=== PATIENT | female | born 1970 | race Caucasian/White ===

== ENCOUNTER → 2020-03-06 | Outpatient (CLI) | payer SELFPAY ==
[~2020-03-06] MED LIST: DIATRIZOATE MEGLUM/SODIUM 37% 120 ML (GASTROGRAFIN) PO ONE
--- NOTE | 2020-03-06 08:58 | Diagnostic Imaging Report ---
PROCEDURE: CT chest and abdomen without contrast. TECHNIQUE: Axial images were obtained from the thoracic inlet through the iliac crest without the administration of intravenous contrast. Auto Exposure Controls were utilized during the CT exam to meet ALARA standards for radiation dose reduction. INDICATION: Elevated diaphragm. COMPARISON: None. FINDINGS: Hepatomegaly. Diffuse fatty infiltration of the liver. Cholecystectomy. The adrenals, kidneys, visualized collecting systems, pancreas and spleen are negative. There is mild elevation of the right hemidiaphragm due to the hepatomegaly. The lungs are clear. No pleural effusion or pneumothorax. No endobronchial lesions. Normal heart size. No pericardial effusion. No mediastinal, hilar or axillary lymphadenopathy. Age-appropriate changes of the visualized spine. No acute osseous findings. IMPRESSION: 1. Hepatic steatosis and hepatomegaly. 2. Lungs are clear. Dictated by: Dictated on workstation # [id number]
== END ==
LOC: RAD 07:47
PROVIDERS: ATTEND Family Medicine
DX: K76.0 Fatty (change of) liver, not elsewhere classified (principal); J98.6 Disorders of diaphragm
CPT/HCPCS: 71250; 74150